=== PATIENT | female | born 1950 | race Caucasian/White ===

== ENCOUNTER → 2017-04-09 | Outpatient (CLI) | payer OTHER, MEDICARE ==
[~2017-04-09] MED LIST: ASCO500C PO; ASPI-484 PO; CHOL200074 PO; CYAN100T PO; FURO20TA3 PO; HYDR12.53 PO; LEVO100T5 PO; LEVO75TA6 PO; MULT-484 PO; NAPR220C2 PO; RIVA10TA PO; TRAM50TA PO; VITA200T6 PO
== END | disposition home or self-care (01) ==
LOC: CT 13:05
PROVIDERS: ATTEND Orthopaedic Surgery
DX: M17.11 Unilateral primary osteoarthritis, right knee (principal)
CPT/HCPCS: 73700

== ENCOUNTER 2017-05-04 01:21 | Inpatient (IN) | payer OTHER, MEDICARE ==
[2017-04-30 14:58] VITALS: BP 137/78
--- NOTE | 2017-04-30 15:14 | PCM.EKG ---
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
[2017-04-30 15:43] LABS: BASOPHIL % 0.2 % (0.0-0.2); EOSINOPHIL # 0.1 10^3/uL (0.0-0.2); EOSINOPHIL % 1.2 % (0.0-5.0); LYMPHOCYTES # 2.5 10^3/uL (1.0-4.8); LYMPHOCYTES % 44.3 % (24.0-44.0); MEAN CELL HGB 31.7 pg (26-34); MEAN CELL HGB CONCENTRATION 32.9 g/dL (33-37); MEAN CORP VOLUME 96.4 fL (78-100); MEAN PLATELET VOLUME 10.4 fL (7.8-11.0); MONOCYTES # 0.5 10^3/uL (0.3-0.8); MONOCYTES % 9.2 % (5.0-12.0); NEUTROPHIL # 2.6 10^3/uL (1.8-7.7); NEUTROPHILS % 44.9 % (41.0-85.0); RED CELL DISTRIBUTION WIDTH 12.9 % (11.5-14.5); WHITE BLOOD CELL 5.7 10^3/uL (4.5-11.0)
[2017-04-30 15:54] LABS: CALCIUM 9.5 mg/dL (8.4-10.5); CARBON DIOXIDE 27.4 mmol/L (20.0-32)
[2017-05-04] VITALS (12 sets, daily range): BP systolic 107–154; BP diastolic 54–82
[~2017-05-04] VITALS: Ht 161.3 cm; Wt 100.3 kg
[~2017-05-04 01:21] MED LIST changes: +BEE580CA PO; +TURM500C4 PO
[2017-05-04] MEDS ORDERED: NEURONTIN PO SCH (04:30)
[2017-05-04] MEDS ORDERED: CELEBREX PO ONE (04:30)
[2017-05-04] MEDS ORDERED: TYLENOL PO ONE (04:30)
[2017-05-04] MEDS ORDERED: VANCOMYCIN HCL 2 GM ONE (04:57)
[2017-05-04] MEDS ORDERED: NS 250ML 250 ML IV ONE ×2 (04:58→07:15)
[2017-05-04] MEDS ORDERED: VANCOMYCIN 1,500 MG in NS 100ML 100 ML IV ONE (06:00)
[2017-05-04] MEDS ORDERED: BACTROBAN NASAL NS ONE (06:00)
[2017-05-04] MEDS ORDERED: LACTATED RINGERS 1,000 ML IV ONE (06:00)
[2017-05-04] MEDS ORDERED: SODIUM CHLORIDE IR ONE (07:14)
[2017-05-04] MEDS ORDERED: NS 100ML 200 ML IV ONE (07:14)
[2017-05-04] MEDS ORDERED: NS 3000ML IRR IR ONE (07:15)
[2017-05-04] MEDS ORDERED: DECADRON ONE (07:19)
[2017-05-04] MEDS ORDERED: TORADOL ONE (07:19)
[2017-05-04] MEDS ORDERED: ZEMURON IV ONE (07:19)
[2017-05-04] MEDS ORDERED: NEOSTIGMINE ONE (07:19)
[2017-05-04] MEDS ORDERED: ZOFRAN ONE (07:19)
[2017-05-04] MEDS ORDERED: VERSED ONE (07:19)
[2017-05-04] MEDS ORDERED: DIPRIVAN IV ONE (07:20)
[2017-05-04] MEDS ORDERED: SUBLIMAZE ONE (07:20)
[2017-05-04] MEDS ORDERED: TRANEXAMIC ACID IV ONE (07:21)
[2017-05-04] MEDS ORDERED: NS 100ML 100 ML IV ONE (07:21)
[2017-05-04] MEDS ORDERED: DURAMORPH ONE (07:22)
[2017-05-04] MEDS ORDERED: NAROPIN 0.5% 5 MG/ML VIAL ONE (07:22)
[2017-05-04] MEDS ORDERED: LIDOCAINE 2% VIAL ONE ×2 (07:22→07:40)
[2017-05-04] MEDS ORDERED: PHENERGAN IV PRN (10:30)
[2017-05-04] MEDS ORDERED: CEPACOL SORE THROAT LOZENGE MM PRN (10:30)
[2017-05-04] MEDS ORDERED: ZOFRAN IV PRN (10:30)
[2017-05-04] MEDS ORDERED: BACTROBAN NASAL NS PRN (10:30)
[2017-05-04] MEDS ORDERED: VANCOMYCIN HCL IV SCH (10:30)
[2017-05-04] MEDS ORDERED: LACTATED RINGERS 1,000 ML IV SCH (10:30)
[2017-05-04] MEDS ORDERED: SUBLIMAZE IV PRN (10:30)
[2017-05-04] MEDS ORDERED: MORPHINE SULFATE IV PRN ×2 (10:30)
--- NOTE | 2017-05-04 11:10 | NUR ---
ARRIVAL PATIENT ARRIVED ON MED-SURG UNIT AT THIS TIME. PRECAUTION BOX APPLIED TO EXTERIOR DOOR FOR MRSA POSITIVE RESULT. RECEIVED REPORT FROM OR STAFF NURSES. PLACED PATIENT ON SURGICAL VITALS. ASSUMED CARE FOR PATIENT AT THIS TIME.
[2017-05-04] MEDS: LACTATED RINGERS 1,000 ML IV SCH ×2 (11:24→21:31)
--- NOTE | 2017-05-04 11:25 | HPH ---
ADMIT DATE: 05/04/2017 CHIEF COMPLAINT: Painful right knee. HISTORY OF PRESENT ILLNESS: A 66-year-old female with a painful right knee for several years secondary to osteoarthritis. She has night pain as well as pain with just household ambulation. She can walk less than a block before having to sit down because of pain. She has difficulty exercising as well as doing her yard work as well as house work. She takes ibuprofen 400 mg twice a day. The patient complains of limping and giving way about the knee. She has had a trial of home exercises as well as bracing without sustained relief. Exam shows full range of motion about the knee, 1+ effusion. Her ligaments are intact. Her x-rays show that she is aelr-rd-eyol medially with some patellofemoral joint narrowing and osteophytes. The patient was taken to the operating room and the patient is being admitted today for right total knee arthroplasty. PAST MEDICAL HISTORY: Medical problems include hypothyroidism as well as osteoarthritis. MEDICATIONS: Include thyroid replacement as well as ibuprofen. PREVIOUS SURGICAL PROCEDURES: Include left total knee arthroplasty, hysterectomy. ALLERGIES: THE PATIENT HAS NO KNOWN DRUG ALLERGIES. FAMILY HISTORY: Positive for breast cancer, kidney cancer, hypertension and diabetes. REVIEW OF SYSTEMS: The patient's review of systems is negative for chest pain, shortness of breath, nausea, vomiting, melena, hematochezia, dysuria, hematuria, fever, chills or weight loss. SOCIAL HISTORY: The patient lives in [place] with her . She does not smoke or drink. PHYSICAL EXAMINATION: GENERAL: Shows a 5 feet 5 inches, 194 pounds female in no acute distress. HEENT: Within normal limits for her age. CHEST: Clear to auscultation. HEART: Regular rate and rhythm, no murmur. ABDOMEN: Soft and nontender. She has good bowel sounds. EXTREMITIES: Her knee goes out into full extension. She has 120 degrees of flexion, mild crepitation with flexion and extension, tenderness about the medial joint line, palpable osteophytes medially. Her ligaments are intact medially and laterally. NEUROLOGICAL: The patient is awake and alert. She is oriented x 3. Cranial nerves 2-12 are grossly intact. She has normal strength and sensation in all dermatomes and muscle groups of both lower extremities and the upper extremities. ASSESSMENT: Osteoarthritis, right knee. Other diagnosis include hypothyroidism. PLAN: The patient is being admitted for right total knee arthroplasty. The risks and hazards of the procedure have been explained to the patient. She understands the risk involved and wants to proceed as planned. Juan Fabian MD DR: STEFFANY/lasha JOB# [id number]
--- NOTE | 2017-05-04 11:56 | OPH ---
DATE OF SURGERY: 05/04/2017 PREOPERATIVE DIAGNOSIS: Osteoarthritis of the right knee. POSTOPERATIVE DIAGNOSIS: Osteoarthritis of the right knee. OPERATIVE PROCEDURE: Right total knee arthroplasty using Medacta Sphere knee, size 3 femur, a 3 tibia, 12 mm insert. All components were cemented. SURGEON: Juan Fabian MD ANESTHESIA: LMA. TOURNIQUET TIME: 56 minutes at 300 mmHg. DRAINS: None. BLOOD LOSS: 500 mL. DESCRIPTION OF INDICATIONS: The patient is a 66-year-old female with severe pain for several years secondary to OA. She is limited in her daily activities. She takes ibuprofen 400 mg twice a day. She has had cortisone injections, physical therapy, bracing without assistance. She is limited to less than a block of walking. The x-rays show she is frmj-za-rbaa medially with patellofemoral narrowing and osteophytes. The patient was taken to the operating room today for right total knee arthroplasty for pain relief. DESCRIPTION OF PROCEDURE: The patient was placed on the operating table in the supine position. LMA anesthetic was induced without difficulty. The patient had the right thigh padded. Right lower extremity was then sterilely prepped and draped. The patient had the leg exsanguinated with an Esmarch and then the tourniquet was inflated to 300 mmHg with a good bounce. This patient's knee was flexed to 90 degrees. An anterior incision was made. Incision was taken through the skin and the subcutaneous tissues. Full thickness flaps were developed medially and laterally. The patient had the medial parapatellar arthrotomy performed and the patella was deviated laterally. Medial and lateral meniscectomies were performed. The anterior and posterior cruciate ligaments were excised. The patient had the MyKnee femoral cutting block attached to the distal femur with multiple pins. The distal femoral cut was made with the saw. The #2 cutting block was applied size 3. It was held into position with 2 screws and 2 pins. The anterior and posterior femoral cuts as well as the chamfer cuts were made. The patient then had the tibia subluxed anteriorly with a bent knee retractor. The MyKnee tibial guide was attached with multiple pins. The patient had the tibial cut made with the power saw. The size 3 trial tibial component was pinned into position. The cruciate punch was used after the central drill hole was made. The flexion, extension blocks were then trialled and the size 12 had full extension and good stability at 90 degrees of flexion. The size 3 tibial trial component was reapplied. The femoral component was impacted and the 12 insert was applied. The patient had full extension of the knee and 120 degrees of passive flexion. There was excellent medial and lateral stability and excellent tracking of the patella. The peripheral osteophytes about the patella were trimmed. The peripheral edge of the patella was cauterized. The patient then had the final medial and lateral femoral drill holes made. The femoral sulcus cut was made. The trial components were all removed and the bone ends were copiously irrigated and dried. The patient had the size 3 tibial component cemented. The size 12 polyethylene component was impacted and secured with an anterior screw. The size 3 femoral component was likewise cemented. Once all the excess cement was removed and the cement had hardened and the tourniquet was released, the bleeding was controlled with the Aquamantys device. The joint was closed and the capsule closed with #2 PDS in interrupted [id number] manner. The joint was injected with a gram of tranexamic acid in 90 mL of saline. The patient then had the subcutaneous closed with a 2-0 barbed Monocryl in a running manner. The skin was closed with kellen. A medium size Aquacel was applied as well as a compressive dressing. The patient was extubated in the operating room, sent to recovery in stable condition. Juan Fabian MD DR: STEFFANY/lasha JOB# [id number]
[2017-05-04] MEDS: ULTRAM PO SCH ×3 (12:00→21:31)
--- NOTE | 2017-05-04 12:03 | DIREP ---
PROCEDURE:XRAY KNEE 1-2 VWS-RT COMPARISON:None. INDICATIONS:postop FINDINGS: Postoperative changes of right total knee prosthesis. Expected postoperative changes of soft tissue gas, swelling and midline surgical kellen noted. No evidence of hardware complication/fracture. CONCLUSION:Postoperative changes of right total knee prosthesis. Dictated by: Fausto Huntley M.D. on 05/04/2017 at 12:01 PM
[2017-05-04] MEDS: ULTRAM PO PRN (14:22)
[2017-05-04 18:27] LABS: HEMOGLOBIN 12.8 g/dL (12.0-15.0); MEAN CELL HGB 32.4 pg (26-34); MEAN CELL HGB CONCENTRATION 33.2 g/dL (33-37); MEAN CORP VOLUME 97.7 fL (78-100); MEAN PLATELET VOLUME 10.1 fL (7.8-11.0); RED CELL DISTRIBUTION WIDTH 12.7 % (11.5-14.5); WHITE BLOOD CELL 8.2 10^3/uL (4.5-11.0)
--- NOTE | 2017-05-04 18:40 | NUR ---
REPORT REPORT RECEIVED FROM Bia ROSSI LVN. PT IN BED RESTING IN GOOD SPIRITS. ASSUMED CARE OF PT WITH NO S/S OF DISTRESS NOTED AT THIS TIME.
--- NOTE | 2017-05-04 19:35 | PRM.PN ---
Subjective Subjective Date: May 04, 2017 Time: 19:34 Subjective Awake and alert Did not get up with PT VSS NVM+ HGB 12.8 Stable Patient History: Asthma G8 BROTHER Chronic obstructive pulmonary disease 32 MOTHER 33 FATHER, , Age:74 G8 BROTHER Congestive heart failure 33 FATHER, , Age:74 Diabetes mellitus 32 MOTHER FH: breast cancer G8 SISTER FH: sleep apnea 19 CHILD FH: tuberculosis 33 FATHER, , Age:74 Hypertension 32 MOTHER 33 FATHER, , Age:74 G8 SISTER No known health problems G8 SISTER G8 SISTER 19 CHILD VTE VTE Risk Total Score: >5 VTE Risk Score VTE Risk: Score 0-1 = Low Risk (Aggressive mobilization; early ambulation; no VTE prophylaxis required) Score 2: Moderate Risk (Intermittent/Pneumatic Compression Device OR Lovenox/Heparin/Coumadin) Score 3-4: High Risk (Intermittent/Pneumatic Compression Device AND Lovenox/Heparin/Coumadin) Score > or =5: Highest Risk (Intermittent/Pneumatic Compression Device AND Lovenox/Heparin/Coumadin) Review of Systems Allergies: Coded Allergies: No Known Allergies (Unverified , 04/30/17) Scheduled Ascorbic Acid (Vitamin C), 500 MG PO DAILY, (Reported) Aspirin (Aspir 81), 1 TAB PO DAILY, (Reported) Bee Pollen (Bee Pollen), 580 MG PO DAILY24, (Reported) Cholecalciferol (Vitamin D3) (Vitamin D-3), 2,000 UNIT PO DAILY, (Reported) Cyanocobalamin (Vitamin B-12) (Vitamin B-12), 100 MCG PO DAILY, (Reported) Levothyroxine Sodium (Levothyroxine Sodium), 1 TAB PO DAILY, (Reported) Multivitamin (Once Daily), 1 EACH PO DAILY, (Reported) Naproxen Sodium (Aleve), 440 MG PO BID, (Reported) Turmeric/Turmeric Root Extract (Turmeric 500 mg Capsule), 1 CAP PO DAILY24, ( Reported) Vitamin E Mixed (Vitamin E), 200 UNIT PO DAILY, (Reported) Discontinued Medications Furosemide (Furosemide), 1 TAB PO DAILY, (Reported) Discontinued Reason: No Longer Taking Rivaroxaban (Xarelto), 1 TAB PO DAILY Discontinued Reason: No Longer Taking Tramadol Hcl (Tramadol Hcl), 1-2 TAB PO Q4HR PRN for PAIN 5 - 7 Discontinued Reason: No Longer Taking Objective Vitals and I/O Vital Sign - Last 24 Hours 05/04/17 05/04/17 05/04/17 05/04/17 06:09 06:09 07:43 07:48 Temp 97.5 Pulse 75 71 66 Resp 19 B/P (MAP) 154/61 (92) 136/82 (100) 151/73 (99) Pulse Ox 95 18 O2 Delivery Room Air Room Air Room Air 05/04/17 05/04/17 05/04/17 05/04/17 07:53 07:58 08:00 10:17 Pulse 62 67 66 Resp B/P (MAP) 133/77 (95) 139/64 (89) 133/81 (98) Pulse Ox 19 19 O2 Delivery Room Air Room Air Room Air O2 Flow Rate 100 05/04/17 05/04/17 05/04/17 05/04/17 10:17 10:31 10:47 10:55 Temp 97.4 97.5 97.6 Pulse 92 79 81 80 Resp 16 18 B/P (MAP) 129/67 (87) 130/60 (83) 134/66 (88) 136/70 (92) Pulse Ox 94 95 96 95 O2 Delivery Face Tent Nasal Cannula Nasal Cannula 05/04/17 05/04/17 05/04/17 05/04/17 14:29 15:04 15:06 17:20 Temp 98.0 Pulse 60 72 Resp 18 14 12 B/P (MAP) 121/54 (76) Pulse Ox 97 98 98 O2 Delivery Room Air Nasal Cannula Nasal Cannula O2 Flow Rate 2.00 2.00 FiO2 28 Medication Reconciliation Scheduled Ascorbic Acid (Vitamin C), 500 MG PO DAILY, (Reported) Aspirin (Aspir 81), 1 TAB PO DAILY, (Reported) Bee Pollen (Bee Pollen), 580 MG PO DAILY24, (Reported) Cholecalciferol (Vitamin D3) (Vitamin D-3), 2,000 UNIT PO DAILY, (Reported) Cyanocobalamin (Vitamin B-12) (Vitamin B-12), 100 MCG PO DAILY, (Reported) Levothyroxine Sodium (Levothyroxine Sodium), 1 TAB PO DAILY, (Reported) Multivitamin (Once Daily), 1 EACH PO DAILY, (Reported) Naproxen Sodium (Aleve), 440 MG PO BID, (Reported) Turmeric/Turmeric Root Extract (Turmeric 500 mg Capsule), 1 CAP PO DAILY24, ( Reported) Vitamin E Mixed (Vitamin E), 200 UNIT PO DAILY, (Reported) Discontinued Medications Furosemide (Furosemide), 1 TAB PO DAILY, (Reported) Discontinued Reason: No Longer Taking Rivaroxaban (Xarelto), 1 TAB PO DAILY Discontinued Reason: No Longer Taking Tramadol Hcl (Tramadol Hcl), 1-2 TAB PO Q4HR PRN for PAIN 5 - 7 Discontinued Reason: No Longer Taking Course Blood Pressure Systolic: 121 Blood Pressure Diastolic: 54 Blood Pressure Mean: 76 Assessment/Plan Assessment/Plan Patient History: Asthma G8 BROTHER Chronic obstructive pulmonary disease 32 MOTHER 33 FATHER, , Age:74 G8 BROTHER Congestive heart failure 33 FATHER, , Age:74 Diabetes mellitus 32 MOTHER FH: breast cancer G8 SISTER FH: sleep apnea 19 CHILD FH: tuberculosis 33 FATHER, , Age:74 Hypertension 32 MOTHER 33 FATHER, , Age:74 G8 SISTER No known health problems G8 SISTER G8 SISTER 19 CHILD MESHA FOX MD May 04, 2017 19:35
[2017-05-04] MEDS: BACTROBAN NASAL NS SCH (21:00)
[2017-05-04] MEDS: VANCOMYCIN HCL 1.5 GM in NS 250ML 300 ML IV SCH (21:30)
[2017-05-04] MEDS: CELEBREX PO SCH (21:32)
[2017-05-05] VITALS: BP 113/64
[2017-05-05] MEDS: ULTRAM PO SCH ×6 (00:41→20:00)
[2017-05-05 04:00] VITALS: BP 116/61
[2017-05-05] MEDS: LACTATED RINGERS 1,000 ML IV SCH ×2 (04:55→16:30)
[2017-05-05 05:30] LABS: HEMOGLOBIN 11.6 g/dL (12.0-15.0); MEAN CELL HGB 32.2 pg (26-34); MEAN CELL HGB CONCENTRATION 32.7 g/dL (33-37); MEAN CORP VOLUME 98.6 fL (78-100); MEAN PLATELET VOLUME 10.1 fL (7.8-11.0); RED CELL DISTRIBUTION WIDTH 12.8 % (11.5-14.5); WHITE BLOOD CELL 9.5 10^3/uL (4.5-11.0)
[2017-05-05] MEDS: VANCOMYCIN HCL 1.5 GM in NS 250ML 300 ML IV SCH (06:30)
--- NOTE | 2017-05-05 07:05 | NUR ---
REPORT RECEIVED REPORT FROM COREY CARLOS AND ASSUMED CARE OF PT
[2017-05-05 07:24] VITALS: BP 121/67
--- NOTE | 2017-05-05 08:36 | NUR ---
Post op pain rounds POD #1. Pt is lying in bed. She stood up yesterday but unable to ambulate d/t unable to bear weight. Block started to wear off around 3 this morning. She states pain was well controlled with the block. No complications noted. pt very pleased with anesthetic.
--- NOTE | 2017-05-05 08:44 | PRM.PN ---
Subjective Subjective Date: May 05, 2017 Time: 08:44 Subjective Pain ok VSS NVM+ HGB 11.6 Start PT Patient History: Asthma G8 BROTHER Chronic obstructive pulmonary disease 32 MOTHER 33 FATHER, , Age:74 G8 BROTHER Congestive heart failure 33 FATHER, , Age:74 Diabetes mellitus 32 MOTHER FH: breast cancer G8 SISTER FH: sleep apnea 19 CHILD FH: tuberculosis 33 FATHER, , Age:74 Hypertension 32 MOTHER 33 FATHER, , Age:74 G8 SISTER No known health problems G8 SISTER G8 SISTER 19 CHILD VTE VTE Risk Total Score: >5 VTE Risk Score VTE Risk: Score 0-1 = Low Risk (Aggressive mobilization; early ambulation; no VTE prophylaxis required) Score 2: Moderate Risk (Intermittent/Pneumatic Compression Device OR Lovenox/Heparin/Coumadin) Score 3-4: High Risk (Intermittent/Pneumatic Compression Device AND Lovenox/Heparin/Coumadin) Score > or =5: Highest Risk (Intermittent/Pneumatic Compression Device AND Lovenox/Heparin/Coumadin) Review of Systems Allergies: Coded Allergies: No Known Allergies (Unverified , 04/30/17) Scheduled Ascorbic Acid (Vitamin C), 500 MG PO DAILY, (Reported) Aspirin (Aspir 81), 1 TAB PO DAILY, (Reported) Bee Pollen (Bee Pollen), 580 MG PO DAILY24, (Reported) Cholecalciferol (Vitamin D3) (Vitamin D-3), 2,000 UNIT PO DAILY, (Reported) Cyanocobalamin (Vitamin B-12) (Vitamin B-12), 100 MCG PO DAILY, (Reported) Levothyroxine Sodium (Levothyroxine Sodium), 1 TAB PO DAILY, (Reported) Multivitamin (Once Daily), 1 EACH PO DAILY, (Reported) Naproxen Sodium (Aleve), 440 MG PO BID, (Reported) Turmeric/Turmeric Root Extract (Turmeric 500 mg Capsule), 1 CAP PO DAILY24, ( Reported) Vitamin E Mixed (Vitamin E), 200 UNIT PO DAILY, (Reported) Discontinued Medications Furosemide (Furosemide), 1 TAB PO DAILY, (Reported) Discontinued Reason: No Longer Taking Rivaroxaban (Xarelto), 1 TAB PO DAILY Discontinued Reason: No Longer Taking Tramadol Hcl (Tramadol Hcl), 1-2 TAB PO Q4HR PRN for PAIN 5 - 7 Discontinued Reason: No Longer Taking Objective Vitals and I/O Vital Sign - Last 24 Hours 05/04/17 05/04/17 05/04/17 05/04/17 10:17 10:17 10:31 10:47 Temp 97.4 97.5 97.6 Pulse 92 79 81 Resp 16 18 18 B/P (MAP) 129/67 (87) 130/60 (83) 134/66 (88) Pulse Ox 94 95 96 O2 Delivery Face Tent Nasal Cannula O2 Flow Rate 100 05/04/17 05/04/17 05/04/17 05/04/17 10:55 14:29 15:04 15:06 Temp 98.0 Pulse 80 60 72 Resp 18 18 14 12 B/P (MAP) 136/70 (92) 121/54 (76) Pulse Ox 95 97 98 98 O2 Delivery Nasal Cannula Room Air Nasal Cannula O2 Flow Rate 2.00 FiO2 28 05/04/17 05/04/17 05/04/17 05/04/17 17:20 20:00 20:34 22:00 Temp 98.0 Pulse 80 75 Resp 18 12 B/P (MAP) 107/64 (78) Pulse Ox 96 98 O2 Delivery Nasal Cannula Room Air Nasal Cannula Nasal Cannula O2 Flow Rate 2.00 2.00 2.00 05/05/17 05/05/17 05/05/17 05/05/17 00:00 04:00 06:27 07:24 Temp 98.1 98.1 97.4 Pulse 70 78 80 Resp 18 18 18 B/P (MAP) 113/64 (80) 116/61 (79) 121/67 (85) Pulse Ox 92 95 92 O2 Delivery Room Air Room Air Room Air Room Air 05/05/17 07:30 O2 Delivery Room Air Intake and Output 05/04/17 05/04/17 05/05/17 15:00 23:00 07:00 Intake Total 3200 ml 360 ml Output Total 270 ml 300 ml 900 ml Balance 2930 ml -300 ml -540 ml Medication Reconciliation Scheduled Ascorbic Acid (Vitamin C), 500 MG PO DAILY, (Reported) Aspirin (Aspir 81), 1 TAB PO DAILY, (Reported) Bee Pollen (Bee Pollen), 580 MG PO DAILY24, (Reported) Cholecalciferol (Vitamin D3) (Vitamin D-3), 2,000 UNIT PO DAILY, (Reported) Cyanocobalamin (Vitamin B-12) (Vitamin B-12), 100 MCG PO DAILY, (Reported) Levothyroxine Sodium (Levothyroxine Sodium), 1 TAB PO DAILY, (Reported) Multivitamin (Once Daily), 1 EACH PO DAILY, (Reported) Naproxen Sodium (Aleve), 440 MG PO BID, (Reported) Turmeric/Turmeric Root Extract (Turmeric 500 mg Capsule), 1 CAP PO DAILY24, ( Reported) Vitamin E Mixed (Vitamin E), 200 UNIT PO DAILY, (Reported) Discontinued Medications Furosemide (Furosemide), 1 TAB PO DAILY, (Reported) Discontinued Reason: No Longer Taking Rivaroxaban (Xarelto), 1 TAB PO DAILY Discontinued Reason: No Longer Taking Tramadol Hcl (Tramadol Hcl), 1-2 TAB PO Q4HR PRN for PAIN 5 - 7 Discontinued Reason: No Longer Taking Course Blood Pressure Systolic: 121 Blood Pressure Diastolic: 67 Blood Pressure Mean: 85 Assessment/Plan Assessment/Plan Patient History: Asthma G8 BROTHER Chronic obstructive pulmonary disease 32 MOTHER 33 FATHER, , Age:74 G8 BROTHER Congestive heart failure 33 FATHER, , Age:74 Diabetes mellitus 32 MOTHER FH: breast cancer G8 SISTER FH: sleep apnea 19 CHILD FH: tuberculosis 33 FATHER, , Age:74 Hypertension 32 MOTHER 33 FATHER, , Age:74 G8 SISTER No known health problems G8 SISTER G8 SISTER 19 CHILD MESHA FOX MD May 05, 2017 08:44
[2017-05-05] MEDS: ULTRAM PO PRN ×3 (08:52→20:25)
[2017-05-05] MEDS: COLACE PO SCH (08:52)
[2017-05-05] MEDS: CELEBREX PO SCH ×2 (08:52→20:25)
[2017-05-05] MEDS: XARELTO PO SCH (08:53)
[2017-05-05] MEDS: PEPCID PO SCH (08:53)
[2017-05-05] MEDS: BACTROBAN NASAL NS SCH ×2 (08:56→20:27)
[2017-05-05] MEDS ORDERED: VANCOMYCIN HCL 1.5 GM in NS 250ML 300 ML IV SCH (09:30)
--- NOTE | 2017-05-05 09:50 | NUR ---
DISCHARGE PLAN CM VISITED WITH PT CONCERNING HER DISCHARGE PLAN AND NEED. PT LIVES AT HOME WITH HER AND STATED SHE HAS ALWAYS BEEN VERY INDEPENDENT ON ADLS. EDUCATION GIVEN REGARDING POSSIBLE DME NEED AND CONTINUED PHYSICAL THERAPY NEEDS S/P RT [facility]. PT STATED SHE HAS ALL DME IN PLACE @ HOME FROM [facility]. CHOICE LETTER THEN PRESENTED, SIGNED AND PLACED INTO PTS CHART FOR PT TO DISCHARGE BACK HOME WITH [facility] SERVICES PER REQUEST. CM THEN FAXED PTS CLINICAL INFORMATION TO [facility]. CM ALSO NOTIFIED [facility] AND SPOKE TO JOSELITO NICOLE REGARDING HH REFERRAL WITH PHYSICAL THERAPY. JOSELITO STATED THEY WOULD NEED TO RUN PTS INSURANCE BEFORE ACCEPTING PT ON THEIR SERVICES. SHE STATED SHE WOULD NOTIFY CM BACK LATER THIS EVENING. CONTACT INFORMATION PROVIDED TO PT. CURRENT GOAL FOR PT IS TO RETURN BACK HOME WITH TO ROUTINE CARE WITH [facility]ERAP[facility] PER PTS REQUEST. CM TO CONTINUE TO FOLLOW.
[2017-05-05 11:44] VITALS: BP 109/58
[2017-05-05] MEDS: VALIUM PO PRN ×2 (15:20→22:08)
[2017-05-05 15:55] VITALS: BP 127/67
--- NOTE | 2017-05-05 18:53 | NUR ---
report report given to o/c shift
[2017-05-05 19:54] VITALS: BP 123/58
[2017-05-06 00:30] VITALS: BP 125/62
[2017-05-06] MEDS: ULTRAM PO PRN ×3 (00:48→12:30)
[2017-05-06] MEDS: LACTATED RINGERS 1,000 ML IV SCH ×3 (02:30→20:34)
[2017-05-06] MEDS: ULTRAM PO SCH ×7 (04:00→20:09)
[2017-05-06 04:29] VITALS: BP 135/73
[2017-05-06 05:26] LABS: BASOPHIL % 0.1 % (0.0-0.2); EOSINOPHIL # 0.1 10^3/uL (0.0-0.2); EOSINOPHIL % 1.4 % (0.0-5.0); HEMOGLOBIN 11.3 g/dL (12.0-15.0); LYMPHOCYTES # 2.8 10^3/uL (1.0-4.8); LYMPHOCYTES % 33.2 % (24.0-44.0); MEAN CELL HGB 32.6 pg (26-34); MEAN CELL HGB CONCENTRATION 32.4 g/dL (33-37); MEAN CORP VOLUME 100.6 fL (78-100); MEAN PLATELET VOLUME 10.4 fL (7.8-11.0); MONOCYTES # 0.8 10^3/uL (0.3-0.8); MONOCYTES % 9.3 % (5.0-12.0); NEUTROPHIL # 4.7 10^3/uL (1.8-7.7); NEUTROPHILS % 55.8 % (41.0-85.0); RED CELL DISTRIBUTION WIDTH 13.2 % (11.5-14.5); WHITE BLOOD CELL 8.4 10^3/uL (4.5-11.0)
[2017-05-06] MEDS: SYNTHROID PO SCH (06:17)
--- NOTE | 2017-05-06 06:40 | NUR ---
REPORT REPORT RECEIVED FROM MANAGER CASE
[2017-05-06] MEDS: XARELTO PO SCH (08:35)
[2017-05-06] MEDS: COLACE PO SCH (08:35)
[2017-05-06] MEDS: CELEBREX PO SCH ×2 (08:35→20:09)
[2017-05-06] MEDS: VITAMIN B-12 PO SCH (08:36)
[2017-05-06] MEDS: PEPCID PO SCH (08:36)
[2017-05-06] MEDS: VITAMIN E PO SCH (08:36)
[2017-05-06] MEDS: VITAMIN D PO SCH (08:36)
[2017-05-06] MEDS: VITAMIN C PO SCH (08:36)
--- NOTE | 2017-05-06 08:50 | PRM.PN ---
Subjective Subjective Date: May 06, 2017 Time: 08:46 Subjective Pt gets nauseated when she gets up for walking Pain ok afebrile hgb11.4 Try zofran Cont with PT Patient History: Asthma G8 BROTHER Chronic obstructive pulmonary disease 32 MOTHER 33 FATHER, , Age:74 G8 BROTHER Congestive heart failure 33 FATHER, , Age:74 Diabetes mellitus 32 MOTHER FH: breast cancer G8 SISTER FH: sleep apnea 19 CHILD FH: tuberculosis 33 FATHER, , Age:74 Hypertension 32 MOTHER 33 FATHER, , Age:74 G8 SISTER No known health problems G8 SISTER G8 SISTER 19 CHILD VTE VTE Risk Total Score: >5 VTE Risk Score VTE Risk: Score 0-1 = Low Risk (Aggressive mobilization; early ambulation; no VTE prophylaxis required) Score 2: Moderate Risk (Intermittent/Pneumatic Compression Device OR Lovenox/Heparin/Coumadin) Score 3-4: High Risk (Intermittent/Pneumatic Compression Device AND Lovenox/Heparin/Coumadin) Score > or =5: Highest Risk (Intermittent/Pneumatic Compression Device AND Lovenox/Heparin/Coumadin) Review of Systems Allergies: Coded Allergies: No Known Allergies (Unverified , 04/30/17) Scheduled Ascorbic Acid (Vitamin C), 500 MG PO DAILY, (Reported) Aspirin (Aspir 81), 1 TAB PO DAILY, (Reported) Bee Pollen (Bee Pollen), 580 MG PO DAILY24, (Reported) Cholecalciferol (Vitamin D3) (Vitamin D-3), 2,000 UNIT PO DAILY, (Reported) Cyanocobalamin (Vitamin B-12) (Vitamin B-12), 100 MCG PO DAILY, (Reported) Levothyroxine Sodium (Levothyroxine Sodium), 1 TAB PO DAILY, (Reported) Multivitamin (Once Daily), 1 EACH PO DAILY, (Reported) Naproxen Sodium (Aleve), 440 MG PO BID, (Reported) Turmeric/Turmeric Root Extract (Turmeric 500 mg Capsule), 1 CAP PO DAILY24, ( Reported) Vitamin E Mixed (Vitamin E), 200 UNIT PO DAILY, (Reported) Discontinued Medications Furosemide (Furosemide), 1 TAB PO DAILY, (Reported) Discontinued Reason: No Longer Taking Rivaroxaban (Xarelto), 1 TAB PO DAILY Discontinued Reason: No Longer Taking Tramadol Hcl (Tramadol Hcl), 1-2 TAB PO Q4HR PRN for PAIN 5 - 7 Discontinued Reason: No Longer Taking Objective Vitals and I/O Vital Sign - Last 24 Hours 05/05/17 05/05/17 05/05/17 05/05/17 09:25 11:44 12:00 15:55 Temp 97.7 97.9 Pulse 74 69 70 Resp 18 18 18 B/P (MAP) 109/58 (75) 127/67 (87) Pulse Ox 91 96 90 O2 Delivery Room Air Room Air Room Air Room Air FiO2 21 05/05/17 05/05/17 05/05/17 05/06/17 18:57 19:54 23:06 00:30 Temp 98.1 98.1 Pulse 70 76 82 Resp 18 16 16 B/P (MAP) 123/58 (79) 125/62 (83) Pulse Ox 92 93 93 O2 Delivery Room Air Room Air Room Air Room Air 05/06/17 04:29 Temp 98.2 Pulse 84 Resp 16 B/P (MAP) 135/73 (93) Pulse Ox 93 O2 Delivery Room Air Intake and Output 05/05/17 05/05/17 05/06/17 15:00 23:00 07:00 Intake Total 594 ml 660 ml Output Total 580 ml 1300 ml Balance 594 ml -580 ml -640 ml Medication Reconciliation Scheduled Ascorbic Acid (Vitamin C), 500 MG PO DAILY, (Reported) Aspirin (Aspir 81), 1 TAB PO DAILY, (Reported) Bee Pollen (Bee Pollen), 580 MG PO DAILY24, (Reported) Cholecalciferol (Vitamin D3) (Vitamin D-3), 2,000 UNIT PO DAILY, (Reported) Cyanocobalamin (Vitamin B-12) (Vitamin B-12), 100 MCG PO DAILY, (Reported) Levothyroxine Sodium (Levothyroxine Sodium), 1 TAB PO DAILY, (Reported) Multivitamin (Once Daily), 1 EACH PO DAILY, (Reported) Naproxen Sodium (Aleve), 440 MG PO BID, (Reported) Turmeric/Turmeric Root Extract (Turmeric 500 mg Capsule), 1 CAP PO DAILY24, ( Reported) Vitamin E Mixed (Vitamin E), 200 UNIT PO DAILY, (Reported) Discontinued Medications Furosemide (Furosemide), 1 TAB PO DAILY, (Reported) Discontinued Reason: No Longer Taking Rivaroxaban (Xarelto), 1 TAB PO DAILY Discontinued Reason: No Longer Taking Tramadol Hcl (Tramadol Hcl), 1-2 TAB PO Q4HR PRN for PAIN 5 - 7 Discontinued Reason: No Longer Taking Course Blood Pressure Systolic: 135 Blood Pressure Diastolic: 73 Blood Pressure Mean: 93 Assessment/Plan Assessment/Plan Patient History: Asthma G8 BROTHER Chronic obstructive pulmonary disease 32 MOTHER 33 FATHER, , Age:74 G8 BROTHER Congestive heart failure 33 FATHER, , Age:74 Diabetes mellitus 32 MOTHER FH: breast cancer G8 SISTER FH: sleep apnea 19 CHILD FH: tuberculosis 33 FATHER, , Age:74 Hypertension 32 MOTHER 33 FATHER, , Age:74 G8 SISTER No known health problems G8 SISTER G8 SISTER 19 CHILD MESHA FOX MD May 06, 2017 08:50
[2017-05-06 08:55] VITALS: BP 118/61
[2017-05-06] MEDS: BACTROBAN NASAL NS SCH ×2 (09:00→20:09)
--- NOTE | 2017-05-06 09:09 | NUR ---
STATUS PT WORKING WITH PT/OT AT THIS TIME.
--- NOTE | 2017-05-06 09:22 | NUR ---
PT SITTING IN CHAIR AT THIS TIME. PT REPORTS SOME MILD PAIN. WILL EVALUATE OF EFFECT OF PAIN MEDICATION THAT WAS GIVEN. CALL LIGHT IN REACH
[2017-05-06] MEDS: VALIUM PO PRN (09:49)
[2017-05-06 12:35] VITALS: BP_SYST 118; BP_SYST 127; BP_DIAS 61; BP_DIAS 63
--- NOTE | 2017-05-06 13:38 | NUR ---
PT HAS VOIDED AT THIS TIME
[2017-05-06 20:00] VITALS: BP 147/79
[2017-05-07] MEDS: ULTRAM PO SCH ×6 (00:11→20:00)
[2017-05-07 00:38] VITALS: BP 151/79
[2017-05-07 05:27] LABS: BASOPHIL % 0.1 % (0.0-0.2); EOSINOPHIL # 0.2 10^3/uL (0.0-0.2); EOSINOPHIL % 2.5 % (0.0-5.0); HEMOGLOBIN 12.2 g/dL (12.0-15.0); LYMPHOCYTES # 3.6 10^3/uL (1.0-4.8); LYMPHOCYTES % 42.5 % (24.0-44.0); MEAN CELL HGB 32.4 pg (26-34); MEAN CELL HGB CONCENTRATION 32.3 g/dL (33-37); MEAN CORP VOLUME 100.3 fL (78-100); MEAN PLATELET VOLUME 10.3 fL (7.8-11.0); MONOCYTES # 0.9 10^3/uL (0.3-0.8); MONOCYTES % 10.5 % (5.0-12.0); NEUTROPHIL # 3.8 10^3/uL (1.8-7.7); NEUTROPHILS % 44.2 % (41.0-85.0); RED CELL DISTRIBUTION WIDTH 12.9 % (11.5-14.5); WHITE BLOOD CELL 8.5 10^3/uL (4.5-11.0)
[2017-05-07 05:32] VITALS: BP 140/79
[2017-05-07] MEDS: SYNTHROID PO SCH (05:32)
[2017-05-07 07:20] VITALS: BP 135/67
[2017-05-07] MEDS: BACTROBAN NASAL NS SCH ×2 (08:20→20:12)
[2017-05-07] MEDS: COLACE PO SCH (08:20)
[2017-05-07] MEDS: VITAMIN B-12 PO SCH (08:21)
[2017-05-07] MEDS: VITAMIN C PO SCH (08:21)
[2017-05-07] MEDS: CELEBREX PO SCH ×2 (08:21→20:07)
[2017-05-07] MEDS: XARELTO PO SCH (08:21)
[2017-05-07] MEDS: PEPCID PO SCH (08:21)
[2017-05-07] MEDS: VITAMIN D PO SCH (08:21)
[2017-05-07] MEDS: LACTATED RINGERS 1,000 ML IV SCH ×2 (08:30→18:30)
--- NOTE | 2017-05-07 08:46 | PNH ---
DATE: 05/05/2017 SUBJECTIVE: Pain is well controlled. There were no acute events overnight. She did have ORIF performed of the right femur fracture on the evening of 05/04/2017 the night before this note. No other acute changes overnight. OBJECTIVE: VITAL SIGNS: T-max last 24 hours 99.0, pulse of 92, respiratory rate is 18, blood pressure 111/58 and O2 saturation 92% on 2 liters nasal cannula. GENERAL: She is alert, in no acute distress at time of exam, chronic ill-appearing lady. HEENT: Pupils equal, round, reactive to light. Sclerae are anicteric. Oropharynx is clear. Mucous membranes are moist. NECK: Supple, no lymphadenopathy. CARDIOVASCULAR: At time of exam was regular rhythm. LUNGS: Clear bilaterally. No wheezing, shallow inspiratory effort. ABDOMEN: Soft. Bowel sounds are present, nontender to palpation. EXTREMITIES: No cyanosis, clubbing or significant edema. NEUROLOGIC: Grossly nonfocal. LABORATORY DATA: CBC: White count 9.5, hemoglobin 8.9 and platelets 162. ASSESSMENT AND PLAN: The patient is a 66-year-old woman here with status post ORIF of right femur fracture with anemia, primarily due to iron sequestration after orthopedic surgery plus chronic disease, coronary artery disease and hyperlipidemia. 1. We will continue to follow the anemia. There is no need for transfusion at this point. 2. Continue her cardiovascular medications. 3. Continue levothyroxine at current dose. She is clinically euthyroid. 4. DVT prophylaxis, she is on a factor 10a inhibitor. 5. Appropriate p.r.n. pain and nausea medication. Time spent on 05/05/2017 is 25 minutes. Arthur Tadeo MD DR: NICHELLE/lasha JOB# [id number]
[2017-05-07] MEDS: ULTRAM PO PRN ×2 (09:29→20:06)
[2017-05-07 11:26] VITALS: BP 129/65
--- NOTE | 2017-05-07 11:45 | CNH ---
DATE OF CONSULTATION: 05/04/2017 CONSULT/HISTORY AND PHYSICAL REFERRING PHYSICIAN: Juan Fabian MD, Orthopedic Surgery. REASON FOR CONSULTATION: Medical management of multiple medical problems. HISTORY OF PRESENT ILLNESS: This patient is a 66-year-old woman with a past medical history significant for hypothyroidism, osteoarthritis, numerous oral supplements most [id number]-lhizape with reported case of vitamin B12 deficiency. She is status post right total knee arthroplasty. At time of exam, pain was well controlled. Anesthesia was still having some effect. She denied any nausea. She has not been ambulating at this time. She had been previously taking NSAIDs for her osteoarthritis. She denies any epigastric pain noted, GI bleed in the past. Otherwise, she is doing very well. PAST MEDICAL HISTORY: Includes hypothyroidism, osteoarthritis and B12 deficiency. PAST SURGICAL HISTORY: She has had right total knee arthroplasty plus a hysterectomy. ALLERGIES: NO KNOWN DRUG ALLERGIES. HOME MEDICATIONS: List includes vitamin C 500 mg daily, aspirin 81 mg daily, she takes vitamin D and vitamin B12, multivitamin all daily, naproxen 440 mg b.i.d., Turmeric root extract daily, vitamin E daily and bee pollen daily. SOCIAL HISTORY: Does live at home. Denies any alcohol, tobacco or illicit drug use history. FAMILY HISTORY: Negative for early coronary artery disease and diabetes. REVIEW OF SYSTEMS: CARDIAC: Denies chest pain, shortness of breath or dyspnea on exertion. PULMONARY: No cough, sputum production or pleuritic chest pain. GASTROINTESTINAL: No nausea, vomiting, diarrhea or constipation. All else negative in 10 point review of system except as in HPI. PHYSICAL EXAMINATION: VITAL SIGNS: Upon arrival after surgery include height 161.3 cm, weight 87.99 kg, BMI 33.8, temperature 98.0, pulse 60, respiratory rate is 18, blood pressure 120/54, O2 saturation 97% on room air. GENERAL: She is alert, in no acute distress at time of exam. HEENT: Pupils equal, round, reactive to light. Sclerae are anicteric. Oropharynx is clear. Mucous membranes are moist. NECK: Supple, no lymphadenopathy. CARDIOVASCULAR: At time of exam was regular rate and rhythm. LUNGS: Clear bilaterally. ABDOMEN: Soft. Bowel sounds are present, nontender to palpation. EXTREMITIES: No cyanosis, clubbing or significant edema. NEUROLOGIC: Grossly nonfocal. LABORATORY DATA: CBC: White count 8.2, hemoglobin 12.8 and platelets 197. ASSESSMENT AND PLAN: The patient is a 66-year-old woman here with hypothyroidism, osteoarthritis, status post right total knee arthroplasty. 1. Her hemoglobin is normal at this point, we expect it to drop after orthopedic surgery. No signs of active bleeding. We will follow clinically. 2. Appropriate p.r.n. pain and nausea medication. 3. Continue levothyroxine at current dose. She is clinically euthyroid. 4. Continue her oral supplements. 5. DVT prophylaxis, she is on factor 10a inhibitor. Time spent on 05/04/2016 is 45 minutes. This plan was discussed with the patient. She is her own decision maker. She does understand and concur with plans. Thank you very much for this consult. We will follow with you. Arthur Tadeo MD DR: NICHELLE/lasha JOB# [id number]
--- NOTE | 2017-05-07 12:35 | PRM.PN ---
Subjective Subjective Date: May 07, 2017 Time: 12:34 Subjective Not independent with PT VSS HGB 12.2 Cont with PT Patient History: Asthma G8 BROTHER Chronic obstructive pulmonary disease 32 MOTHER 33 FATHER, , Age:74 G8 BROTHER Congestive heart failure 33 FATHER, , Age:74 Diabetes mellitus 32 MOTHER FH: breast cancer G8 SISTER FH: sleep apnea 19 CHILD FH: tuberculosis 33 FATHER, , Age:74 Hypertension 32 MOTHER 33 FATHER, , Age:74 G8 SISTER No known health problems G8 SISTER G8 SISTER 19 CHILD VTE VTE Risk Total Score: >5 VTE Risk Score VTE Risk: Score 0-1 = Low Risk (Aggressive mobilization; early ambulation; no VTE prophylaxis required) Score 2: Moderate Risk (Intermittent/Pneumatic Compression Device OR Lovenox/Heparin/Coumadin) Score 3-4: High Risk (Intermittent/Pneumatic Compression Device AND Lovenox/Heparin/Coumadin) Score > or =5: Highest Risk (Intermittent/Pneumatic Compression Device AND Lovenox/Heparin/Coumadin) Review of Systems Allergies: Coded Allergies: No Known Allergies (Unverified , 04/30/17) Scheduled Ascorbic Acid (Vitamin C), 500 MG PO DAILY, (Reported) Aspirin (Aspir 81), 1 TAB PO DAILY, (Reported) Bee Pollen (Bee Pollen), 580 MG PO DAILY24, (Reported) Cholecalciferol (Vitamin D3) (Vitamin D-3), 2,000 UNIT PO DAILY, (Reported) Cyanocobalamin (Vitamin B-12) (Vitamin B-12), 100 MCG PO DAILY, (Reported) Levothyroxine Sodium (Levothyroxine Sodium), 1 TAB PO DAILY, (Reported) Multivitamin (Once Daily), 1 EACH PO DAILY, (Reported) Naproxen Sodium (Aleve), 440 MG PO BID, (Reported) Turmeric/Turmeric Root Extract (Turmeric 500 mg Capsule), 1 CAP PO DAILY24, ( Reported) Vitamin E Mixed (Vitamin E), 200 UNIT PO DAILY, (Reported) Discontinued Medications Furosemide (Furosemide), 1 TAB PO DAILY, (Reported) Discontinued Reason: No Longer Taking Rivaroxaban (Xarelto), 1 TAB PO DAILY Discontinued Reason: No Longer Taking Tramadol Hcl (Tramadol Hcl), 1-2 TAB PO Q4HR PRN for PAIN 5 - 7 Discontinued Reason: No Longer Taking Objective Vitals and I/O Vital Sign - Last 24 Hours 05/06/17 05/06/17 05/06/17 05/06/17 12:35 20:00 20:05 21:30 Temp 97.8 98.2 Pulse 76 83 89 Resp 18 18 16 B/P (MAP) 127/63 (84) 147/79 (101) Pulse Ox 90 91 95 O2 Delivery Room Air Room Air Room Air Room Air 05/07/17 05/07/17 05/07/17 05/07/17 00:38 05:32 07:20 07:20 Temp 98.3 97.8 98.1 Pulse 86 84 81 Resp 20 18 18 B/P (MAP) 151/79 (103) 140/79 (99) 135/67 (89) Pulse Ox 94 96 93 O2 Delivery Room Air Room Air Room Air Room Air 05/07/17 05/07/17 07:58 11:26 Temp 98.5 Pulse 85 86 Resp 14 18 B/P (MAP) 129/65 (86) Pulse Ox 93 92 O2 Delivery Room Air Room Air FiO2 21 Intake and Output 05/06/17 05/06/17 05/07/17 15:00 23:00 07:00 Intake Total 1100 ml 420 ml Output Total 900 ml Balance 200 ml 420 ml Medication Reconciliation Scheduled Ascorbic Acid (Vitamin C), 500 MG PO DAILY, (Reported) Aspirin (Aspir 81), 1 TAB PO DAILY, (Reported) Bee Pollen (Bee Pollen), 580 MG PO DAILY24, (Reported) Cholecalciferol (Vitamin D3) (Vitamin D-3), 2,000 UNIT PO DAILY, (Reported) Cyanocobalamin (Vitamin B-12) (Vitamin B-12), 100 MCG PO DAILY, (Reported) Levothyroxine Sodium (Levothyroxine Sodium), 1 TAB PO DAILY, (Reported) Multivitamin (Once Daily), 1 EACH PO DAILY, (Reported) Naproxen Sodium (Aleve), 440 MG PO BID, (Reported) Turmeric/Turmeric Root Extract (Turmeric 500 mg Capsule), 1 CAP PO DAILY24, ( Reported) Vitamin E Mixed (Vitamin E), 200 UNIT PO DAILY, (Reported) Discontinued Medications Furosemide (Furosemide), 1 TAB PO DAILY, (Reported) Discontinued Reason: No Longer Taking Rivaroxaban (Xarelto), 1 TAB PO DAILY Discontinued Reason: No Longer Taking Tramadol Hcl (Tramadol Hcl), 1-2 TAB PO Q4HR PRN for PAIN 5 - 7 Discontinued Reason: No Longer Taking Course Blood Pressure Systolic: 129 Blood Pressure Diastolic: 65 Blood Pressure Mean: 86 Assessment/Plan Assessment/Plan Patient History: Asthma G8 BROTHER Chronic obstructive pulmonary disease 32 MOTHER 33 FATHER, , Age:74 G8 BROTHER Congestive heart failure 33 FATHER, , Age:74 Diabetes mellitus 32 MOTHER FH: breast cancer G8 SISTER FH: sleep apnea 19 CHILD FH: tuberculosis 33 FATHER, , Age:74 Hypertension 32 MOTHER 33 FATHER, , Age:74 G8 SISTER No known health problems G8 SISTER G8 SISTER 19 CHILD MESHA FOX MD May 07, 2017 12:35
[2017-05-07 15:56] VITALS: BP 135/67
[2017-05-07 20:00] VITALS: BP 145/70
[2017-05-08] VITALS: BP 130/64
[2017-05-08] MEDS: ULTRAM PO SCH ×4 (00:42→11:06)
[2017-05-08 04:02] VITALS: BP 140/67
[2017-05-08] MEDS: LACTATED RINGERS 1,000 ML IV SCH (04:30)
[2017-05-08] MEDS: SYNTHROID PO SCH (05:59)
[2017-05-08] MEDS: ULTRAM PO PRN ×2 (05:59→09:23)
[2017-05-08 07:57] VITALS: BP 156/60
[2017-05-08] MEDS: BACTROBAN NASAL NS SCH (09:00)
[2017-05-08] MEDS: VITAMIN E PO SCH (09:00)
--- NOTE | 2017-05-08 09:01 | PRM.PN ---
Subjective Subjective Date: May 08, 2017 Time: 09:00 Subjective Pain ok Independent with PT and OT VSS HGB 12 yesterday Wound ok DC appt 1 week Patient History: Asthma G8 BROTHER Chronic obstructive pulmonary disease 32 MOTHER 33 FATHER, , Age:74 G8 BROTHER Congestive heart failure 33 FATHER, , Age:74 Diabetes mellitus 32 MOTHER FH: breast cancer G8 SISTER FH: sleep apnea 19 CHILD FH: tuberculosis 33 FATHER, , Age:74 Hypertension 32 MOTHER 33 FATHER, , Age:74 G8 SISTER No known health problems G8 SISTER G8 SISTER 19 CHILD VTE VTE Risk Total Score: >5 VTE Risk Score VTE Risk: Score 0-1 = Low Risk (Aggressive mobilization; early ambulation; no VTE prophylaxis required) Score 2: Moderate Risk (Intermittent/Pneumatic Compression Device OR Lovenox/Heparin/Coumadin) Score 3-4: High Risk (Intermittent/Pneumatic Compression Device AND Lovenox/Heparin/Coumadin) Score > or =5: Highest Risk (Intermittent/Pneumatic Compression Device AND Lovenox/Heparin/Coumadin) Review of Systems Allergies: Coded Allergies: No Known Allergies (Unverified , 04/30/17) Scheduled Ascorbic Acid (Vitamin C), 500 MG PO DAILY, (Reported) Aspirin (Aspir 81), 1 TAB PO DAILY, (Reported) Bee Pollen (Bee Pollen), 580 MG PO DAILY24, (Reported) Cholecalciferol (Vitamin D3) (Vitamin D-3), 2,000 UNIT PO DAILY, (Reported) Cyanocobalamin (Vitamin B-12) (Vitamin B-12), 100 MCG PO DAILY, (Reported) Levothyroxine Sodium (Levothyroxine Sodium), 1 TAB PO DAILY, (Reported) Multivitamin (Once Daily), 1 EACH PO DAILY, (Reported) Naproxen Sodium (Aleve), 440 MG PO BID, (Reported) Turmeric/Turmeric Root Extract (Turmeric 500 mg Capsule), 1 CAP PO DAILY24, ( Reported) Vitamin E Mixed (Vitamin E), 200 UNIT PO DAILY, (Reported) Objective Vitals and I/O Vital Sign - Last 24 Hours 05/07/17 05/07/17 05/07/17 05/07/17 11:26 15:56 20:00 20:15 Temp 98.5 97.7 98.7 Pulse 86 81 86 Resp 18 18 17 B/P (MAP) 129/65 (86) 135/67 (89) 145/70 (95) Pulse Ox 92 92 95 O2 Delivery Room Air Room Air Room Air Room Air 05/07/17 05/07/17 05/07/17 05/08/17 21:11 21:11 21:59 00:00 Temp 97.7 Pulse 89 89 Resp 18 16 16 B/P (MAP) 130/64 (86) Pulse Ox 94 94 94 O2 Delivery Room Air Room Air Room Air FiO2 21 05/08/17 05/08/17 05/08/17 04:02 07:43 07:57 Temp 98.2 97.7 Pulse 84 85 Resp 17 16 B/P (MAP) 140/67 (91) 156/60 (92) Pulse Ox 95 95 O2 Delivery Room Air Room Air Room Air Intake and Output 05/07/17 05/07/17 05/08/17 15:00 23:00 07:00 Intake Total 480 ml 240 ml 360 ml Output Total 400 ml 475 ml Balance 480 ml -160 ml -115 ml Medication Reconciliation Scheduled Ascorbic Acid (Vitamin C), 500 MG PO DAILY, (Reported) Aspirin (Aspir 81), 1 TAB PO DAILY, (Reported) Bee Pollen (Bee Pollen), 580 MG PO DAILY24, (Reported) Cholecalciferol (Vitamin D3) (Vitamin D-3), 2,000 UNIT PO DAILY, (Reported) Cyanocobalamin (Vitamin B-12) (Vitamin B-12), 100 MCG PO DAILY, (Reported) Levothyroxine Sodium (Levothyroxine Sodium), 1 TAB PO DAILY, (Reported) Multivitamin (Once Daily), 1 EACH PO DAILY, (Reported) Naproxen Sodium (Aleve), 440 MG PO BID, (Reported) Turmeric/Turmeric Root Extract (Turmeric 500 mg Capsule), 1 CAP PO DAILY24, ( Reported) Vitamin E Mixed (Vitamin E), 200 UNIT PO DAILY, (Reported) Course Blood Pressure Systolic: 156 Blood Pressure Diastolic: 60 Blood Pressure Mean: 92 Assessment/Plan Assessment/Plan Patient History: Asthma G8 BROTHER Chronic obstructive pulmonary disease 32 MOTHER 33 FATHER, , Age:74 G8 BROTHER Congestive heart failure 33 FATHER, , Age:74 Diabetes mellitus 32 MOTHER FH: breast cancer G8 SISTER FH: sleep apnea 19 CHILD FH: tuberculosis 33 FATHER, , Age:74 Hypertension 32 MOTHER 33 FATHER, , Age:74 G8 SISTER No known health problems G8 SISTER G8 SISTER 19 CHILD MESHA FOX MD May 08, 2017 09:01
[2017-05-08] MEDS: COLACE PO SCH (09:21)
[2017-05-08] MEDS: VITAMIN B-12 PO SCH (09:22)
[2017-05-08] MEDS: VITAMIN D PO SCH (09:22)
[2017-05-08] MEDS: CELEBREX PO SCH (09:22)
[2017-05-08] MEDS: PEPCID PO SCH (09:22)
[2017-05-08] MEDS: VITAMIN C PO SCH (09:22)
[2017-05-08] MEDS: XARELTO PO SCH (09:23)
[2017-05-08] MEDS ORDERED: TRAM-47 PO (09:41)
[2017-05-08] MEDS ORDERED: ASPI325T17 PO (09:41)
[2017-05-08 11:41] VITALS: BP 119/67
--- NOTE | 2017-05-08 13:24 | NUR ---
UPDATE TO [facility]/CPM CM/SS RECEIVED A PHYSICIAN ORDER FOR PT TO DISCHARGE HOME WITH A CPM MACHINE. CM FAXED ORDER WITH ALL PT APPLICABLE CLINICAL INFORMATION TO [facility]. [place] [facility] [place] [facility] AND SPOKE TO [facility] WHOM STATED [facility] WILL DELIVER PTS CPM LATER THIS EVENING TO HER HOME DUE TO HAVING TO GO OUT OF TOWN TO PICK ONE UP TO ACCOMMODATE PTS NEEDS. CM THEN FAXED PTS UPDATED CLINICAL INFORMATION WITH DISCHARGE INSTRUCTIONS TO [facility]. CM ALSO NOTIFIED [facility] AND SPOKE TO MARCELLA REGARDING PTS DISCHARGE FOR TODAY. MARCELLA STATED HE WOULD NOTIFY LONGTERM OF PTS DISCHARGE FOR TODAY AND GET PT ON THE SCHEDULE FOR AN HH ADMISSION TOMORROW 05/09/17. CM MADE A FOLLOW UP VISIT TO PT AND EDUCATED HER ON THE ABOVE DOCUMENTATION WITH VERBAL UNDERSTANDING. NO FURTHER CM OR DISCHARGE NEEDS KNOWN @ THIS TIME.
[2017-05-08 13:32] VITALS: BP 119/67
--- NOTE | 2017-05-08 19:26 | DSH ---
DATE OF DISCHARGE: 05/08/2017 ADMITTING DIAGNOSIS: Osteoarthritis of the right knee. OTHER DIAGNOSES: Include hypothyroidism and obesity. DISCHARGE DIAGNOSES: Osteoarthritis of the right knee plus postoperative anemia secondary to surgery expected. OPERATIVE PROCEDURE DATE: 05/04/2017. PROCEDURE PERFORMED: Right total knee arthroplasty. CONSULTATIONS: Will be Dr. Tadeo. COMPLICATIONS: None. SUMMARY OF ADMISSION: The patient is a 66-year-old female with right knee pain for several years secondary to osteoarthritis. She failed conservative treatment, was [id number] medially and in the patellofemoral joint. She was taken to the operating room for right total knee arthroplasty for pain relief. This patient's procedure was performed without incident. Postoperatively, she was awake and alert. Vital signs were stable. Neurovascular exam was normal. The patient had daily PT and OT for gait training and ADLs as well as transfers. The patient was on a regular diet throughout her postoperative course, which she tolerated well. She was on early ambulation as well as Xarelto and foot pump, SCDs for DVT prophylaxis. On discharge, the patient can transfer out of bed independently. She can walk 100 feet with her walker, weightbearing as tolerated. Her wound is benign. She will be instructed to use the CPM unit 6 hours a day. We will arrange for some home health physical therapy. She will leave the Aquacel dressing intact for a week. I will see her back in my office in 5 days. We will give her a prescription for tramadol for the pain and she will take aspirin 325 b.i.d. for 1 month for DVT prophylaxis. Juan Fabian MD DR: STEFFANY/lasha JOB# [id number]
== END 2017-05-08 14:13 | disposition home health service (06) | DRG 470 ==
LOC: MS 01:21
PROVIDERS: ADMIT Orthopaedic Surgery; ATTEND Orthopaedic Surgery
PROC: 0SRC0J9 Replacement of Right Knee Joint with Synthetic Substitute, Cemented, Open Approach (ICD-10-PCS; principal; 2017-05-04 08:10)
DX: M17.11 Unilateral primary osteoarthritis, right knee (principal); D63.8 Anemia in other chronic diseases classified elsewhere; E53.8 Deficiency of other specified B group vitamins; E66.9 Obesity, unspecified; E78.5 Hyperlipidemia, unspecified; I25.10 Atherosclerotic heart disease of native coronary artery without angina pectoris; E03.9 Hypothyroidism, unspecified; Z96.652 Presence of left artificial knee joint; Z80.3 Family history of malignant neoplasm of breast; Z80.51 Family history of malignant neoplasm of kidney; Z82.49 Family history of ischemic heart disease and other diseases of the circulatory system; Z83.3 Family history of diabetes mellitus; Z90.710 Acquired absence of both cervix and uterus; Z82.5 Family history of asthma and other chronic lower respiratory diseases; Z79.82 Long term (current) use of aspirin; Z79.899 Other long term (current) drug therapy; Z68.38 Body mass index [BMI] 38.0-38.9, adult; Z86.14 Personal history of Methicillin resistant Staphylococcus aureus infection
CPT/HCPCS: 36415; 64447; 73560; 80053; 85025; 85027; 87070; 93005; 97161; 97166; A4338; J1100; J1885; J2001; J2250; J2270; J2405; J2795; J3010; J3490; J7030; J7050; J7120; 97110-GP; 97116-GP; 97530-GP; 97535-GO; C1776; G8978-CK; G8979-CI; G8987; G8988; J2274; J2710; J3370; J8499